=== PATIENT | female | born 1955 | race Caucasian/White ===

== ENCOUNTER 2020-05-21 09:26 | Outpatient (CLI) | payer MEDICARE, BC, SELFPAY ==
[2020-05-21 10:05] LABS: Hematocrit 45.9 % (37.0-47.0); Hemoglobin 15.2 g/dL (12.0-15.0); Mean Corpuscular HGB Conc 33.1 g/dl (32-36); Mean Corpuscular Hemoglobin 32.8 pg (26-34); Mean Corpuscular Volume 98.9 fl (80-100); Mean Platelet Volume 11.2 fl (7.4-10.4); Platelet Count Result 248 k/mm3 (150-375); Red Blood Count 4.64 M/mm3 (4.2-5.4); Red Cell Distribution Width 12.7 % (11.5-14.5); White Blood Count 8.1 K/mm3 (4.5-10.0)
[2020-05-21 11:40] LABS: Add Urine Microscopic? YES; Appearance Urine Clear (Clear); Bilirubin Urine Negative (Negative); Blood Urine 1+ (Negative); Color Urine Straw (Yellow); Glucose Urine UA Negative (Negative); Ketones Urine Negative (Negative); Leukocyte Esterase Ur Negative LEU/UL (Negative); Mucus Urine Rare /lpf; Nitrate Urine Negative (Negative); Protein Urine Negative (Negative); RBC Urine 0-2 /hpf (0-2); Specific Grav Ur 1.011 (1.001-1.035); Squamous Epithelial Cell Urine Rare /hpf (Few); Urobilinogen Urine Negative mg/dL (<2.0); WBC Urine 0-3 /hpf
[2020-05-21 11:53] LABS: Alanine Aminotransferase 15 U/L (4-35); Albumin Level 4.7 g/dL (3.5-5.1); Alkaline Phosphatase 111 U/L (38-126); Aspartate Amino Transferase 27 U/L (14-36); Bilirubin,Total 0.4 mg/dL (0.2-1.3); Blood Urea Nitrogen 14 mg/dL (7-17); CRP < 0.5 mg/dL (<1.0); Calcium 9.9 mg/dL (8.4-10.2); Carbon Dioxide 24 mmol/L (22-30); Chloride 104 mmol/L (98-107); Estimated Glomerular Filt Rate > 60; Glucose 99 mg/dL (65-105); Potassium 4.7 mmol/L (3.4-5.0); Sodium 138 mmol/L (137-145)
[2020-05-21 11:57] LABS: Erythrocyte Sedimentation Rate 15 mm/hr (0-20)
[2020-05-21 12:23] LABS: Cholesterol 234 mg/dL (0-200); HDL Direct 61 mg/dL; Triglycerides 245 mg/dL (<150)
[2020-05-21 12:33] LABS: LDL Cholesterol Direct 131 mg/dL
[2020-05-21 12:38] LABS: Complement C3 130 mg/dL (88-165)
[2020-05-21 12:45] LABS: Vitamin D 25 Hydroxy 28.4 ng/mL
[2020-05-24 04:33] LABS: Hexagonal Phase Confirm Negative (Negative); Lupus dRVVT 1:1 Mix Interpreta Not Indicated; Lupus dRVVT Screen 38 sec (<=45); PTT-LA Screen 41 sec (<=40)
[2020-05-25 09:42] LABS: SS-A <1.0; SS-B <1.0
[2020-07-02 13:59] LABS: SM Antibody <1.0
[2020-07-02 14:03] LABS: SM/RNP Antibody <1.0
== END 2020-05-21 09:27 | disposition home or self-care (01) ==
PROVIDERS: PCP Family Medicine; Visit Provider Internal Medicine
DX: M35.9 Systemic involvement of connective tissue, unspecified (principal); M19.90 Unspecified osteoarthritis, unspecified site; M81.0 Age-related osteoporosis without current pathological fracture; Z79.899 Other long term (current) drug therapy
CPT/HCPCS: 36415; 80053; 80061; 81001; 82306; 85027; 85598; 85613; 85652; 85730; 86140; 86160; 86225; 86235

== ENCOUNTER 2020-12-18 09:40 | Outpatient (CLI) | payer MEDICARE, BC, SELFPAY ==
[2020-12-18 10:07] LABS: Hematocrit 44.7 % (37.0-47.0); Mean Corpuscular HGB Conc 33.6 g/dl (32-36); Mean Corpuscular Hemoglobin 32.5 pg (26-34); Mean Corpuscular Volume 96.8 fl (80-100); Mean Platelet Volume 10.7 fl (7.4-10.4); Platelet Count Result 253 k/mm3 (150-375); Red Blood Count 4.62 M/mm3 (4.2-5.4); Red Cell Distribution Width 12.8 % (11.5-14.5); White Blood Count 7.9 K/mm3 (4.5-10.0)
[2020-12-18 11:05] LABS: Erythrocyte Sedimentation Rate 15 mm/hr (0-20)
[2020-12-18 12:53] LABS: Alanine Aminotransferase 18 U/L (4-35); Albumin Level 4.4 g/dL (3.5-5.1); Alkaline Phosphatase 104 U/L (38-126); Anion Gap 6 mmol/L (8-16); Aspartate Amino Transferase 25 U/L (14-36); Bilirubin,Total 0.5 mg/dL (0.2-1.3); Blood Urea Nitrogen 18 mg/dL (7-17); CRP < 0.5 mg/dL (<1.0); Calcium 9.6 mg/dL (8.4-10.2); Carbon Dioxide 27 mmol/L (22-30); Chloride 107 mmol/L (98-107); Estimated Glomerular Filt Rate 55; Glucose 101 mg/dL (65-105); Potassium 4.6 mmol/L (3.4-5.0); Sodium 140 mmol/L (137-145)
[2020-12-18 13:01] LABS: Complement C3 124 mg/dL (88-165)
[2020-12-21 02:35] LABS: Lupus dRVVT 1:1 Mix Interpreta Not Indicated; Lupus dRVVT Screen 36 sec (<=45); PTT-LA Screen 34 sec (<=40)
[2020-12-21 12:17] LABS: SS-A <1.0; SS-B <1.0
[2020-12-22 11:43] LABS: SM Antibody <1.0; SM/RNP Antibody <1.0
== END 2020-12-18 09:41 | disposition home or self-care (01) ==
LOC: ANHLAB 09:43
PROVIDERS: PCP Family Medicine; Visit Provider Internal Medicine
DX: M35.9 Systemic involvement of connective tissue, unspecified (principal); M19.90 Unspecified osteoarthritis, unspecified site; M32.9 Systemic lupus erythematosus, unspecified
CPT/HCPCS: 36415; 80053; 85027; 85613; 85652; 85730; 86140; 86160; 86225; 86235

== ENCOUNTER 2021-05-29 08:53 | Outpatient (CLI) | payer MEDICARE, BC, SELFPAY ==
[2021-05-29 09:15] LABS: Hematocrit 45.7 % (37.0-47.0); Mean Corpuscular HGB Conc 32.8 g/dl (32-36); Mean Corpuscular Hemoglobin 32.5 pg (26-34); Mean Corpuscular Volume 98.9 fl (80-100); Mean Platelet Volume 10.6 fl (7.4-10.4); Platelet Count Result 250 k/mm3 (150-375); Red Blood Count 4.62 M/mm3 (4.2-5.4); Red Cell Distribution Width 12.8 % (11.5-14.5); White Blood Count 8.8 K/mm3 (4.5-10.0)
[2021-05-29 10:29] LABS: Add Urine Microscopic? NO
[2021-05-29 10:30] LABS: Appearance Urine Clear (Clear); Blood Urine Negative (Negative); Color Urine Yellow (Yellow); Glucose Urine UA Negative (Negative); Ketones Urine Negative (Negative); Protein Urine Negative (Negative)
[2021-05-29 10:31] LABS: Bilirubin Urine Negative (Negative); Leukocyte Esterase Ur Negative LEU/UL (Negative); Nitrate Urine Negative (Negative); Urobilinogen Urine 0.2 mg/dL (<2.0)
[2021-05-29 10:40] LABS: Erythrocyte Sedimentation Rate 15 mm/hr (0-20)
[2021-05-29 12:21] LABS: Alanine Aminotransferase 15 U/L (4-35); Albumin Level 4.7 g/dL (3.5-5.1); Alkaline Phosphatase 91 U/L (38-126); Anion Gap 13 mmol/L (8-16); Aspartate Amino Transferase 23 U/L (14-36); Bilirubin,Total 0.6 mg/dL (0.2-1.3); Blood Urea Nitrogen 16 mg/dL (7-17); CRP < 0.5 mg/dL (<1.0); Calcium 10.2 mg/dL (8.4-10.2); Carbon Dioxide 24 mmol/L (22-30); Chloride 101 mmol/L (98-107); Estimated Glomerular Filt Rate > 60; Glucose 94 mg/dL (65-105); Potassium 4.3 mmol/L (3.4-5.0); Sodium 138 mmol/L (137-145)
== END 2021-05-29 08:54 | disposition home or self-care (01) ==
LOC: ANHLAB 08:59
PROVIDERS: PCP Family Medicine; Visit Provider Internal Medicine
DX: M35.9 Systemic involvement of connective tissue, unspecified (principal); M32.9 Systemic lupus erythematosus, unspecified; M19.90 Unspecified osteoarthritis, unspecified site
CPT/HCPCS: 36415; 80053; 81003; 85027; 85652; 86140

== ENCOUNTER 2021-12-16 09:47 | Outpatient (CLI) | payer MEDICARE, BC, SELFPAY ==
[2021-12-16 10:07] LABS: Hematocrit 47.1 % (37.0-47.0); Hemoglobin 14.8 g/dL (12.0-15.0); Mean Corpuscular HGB Conc 31.4 g/dl (32-36); Mean Corpuscular Volume 101.7 fl (80-100); Mean Platelet Volume 10.7 fl (7.4-10.4); Platelet Count Result 249 k/mm3 (150-375); Red Blood Count 4.63 M/mm3 (4.2-5.4); Red Cell Distribution Width 12.3 % (11.5-14.5); White Blood Count 8.5 K/mm3 (4.5-10.0)
[2021-12-16 10:39] LABS: Alanine Aminotransferase 16 U/L (4-35); Albumin Level 4.5 g/dL (3.5-5.1); Alkaline Phosphatase 84 U/L (38-126); Anion Gap 5 mmol/L (8-16); Aspartate Amino Transferase 26 U/L (14-36); Bilirubin,Total 0.6 mg/dL (0.2-1.3); Blood Urea Nitrogen 13 mg/dL (7-17); CRP < 0.5 mg/dL (<1.0); Calcium 9.7 mg/dL (8.4-10.2); Carbon Dioxide 27 mmol/L (22-30); Chloride 105 mmol/L (98-107); Estimated Glomerular Filt Rate 55; Glucose 92 mg/dL (65-110); Potassium 4.4 mmol/L (3.4-5.0); Sodium 137 mmol/L (137-145)
[2021-12-16 10:44] LABS: Add Urine Microscopic? NO; Appearance Urine Clear (Clear); Bilirubin Urine Negative (Negative); Blood Urine Negative (Negative); Color Urine Yellow (Yellow); Glucose Urine UA Negative (Negative); Ketones Urine Negative (Negative); Leukocyte Esterase Ur Negative LEU/UL (Negative); Nitrate Urine Negative (Negative); Protein Urine Negative (Negative); Specific Grav Ur 1.014 (1.001-1.035); Urobilinogen Urine Negative mg/dL (<2.0)
[2021-12-16 11:02] LABS: Erythrocyte Sedimentation Rate 11 mm/hr (0-20)
== END 2021-12-16 09:48 | disposition home or self-care (01) ==
LOC: ANHLAB 09:49
PROVIDERS: Internal Medicine; PCP Family Medicine; Visit Provider Internal Medicine Hematology & Oncology
DX: M32.9 Systemic lupus erythematosus, unspecified (principal); M35.9 Systemic involvement of connective tissue, unspecified; M19.90 Unspecified osteoarthritis, unspecified site
CPT/HCPCS: 36415; 80053; 81003; 85027; 85652; 86140

== ENCOUNTER 2022-04-21 08:52 | Outpatient (CLI) | payer MEDICARE, BC, SELFPAY ==
[2022-04-21 09:25] LABS: Hematocrit 44.1 % (37.0-47.0); Hemoglobin 14.2 g/dL (12.0-15.0); Mean Corpuscular HGB Conc 32.2 g/dl (32-36); Mean Corpuscular Hemoglobin 32.9 pg (26-34); Mean Corpuscular Volume 102.1 fl (80-100); Mean Platelet Volume 10.8 fl (7.4-10.4); Platelet Count Result 241 k/mm3 (150-375); Red Blood Count 4.32 M/mm3 (4.2-5.4); Red Cell Distribution Width 12.9 % (11.5-14.5); White Blood Count 7.3 K/mm3 (4.5-10.0)
[2022-04-21 10:10] LABS: Alanine Aminotransferase 17 U/L (6-35); Albumin Level 4.6 g/dL (3.5-5.1); Alkaline Phosphatase 83 U/L (38-126); Anion Gap 8 mmol/L (8-16); Aspartate Amino Transferase 25 U/L (14-36); Bilirubin,Total 0.5 mg/dL (0.2-1.3); Blood Urea Nitrogen 12 mg/dL (7-17); CRP < 0.5 mg/dL (<1.0); Carbon Dioxide 24 mmol/L (22-30); Chloride 103 mmol/L (98-107); Estimated Glomerular Filt Rate > 60; Glucose 92 mg/dL (65-110); Potassium 4.6 mmol/L (3.4-5.0); Sodium 135 mmol/L (137-145)
[2022-04-21 10:14] LABS: Appearance Urine Slightly Cloudy (Clear); Bilirubin Urine Negative (Negative); Blood Urine Negative (Negative); Color Urine Yellow (Yellow); Glucose Urine UA Negative (Negative); Ketones Urine Negative (Negative); Leukocyte Esterase Ur Trace LEU/UL (Negative); Nitrate Urine Negative (Negative); Protein Urine Negative (Negative); Specific Grav Ur >= 1.030 (1.001-1.035); Urobilinogen Urine 0.2 mg/dL (<2.0)
[2022-04-21 10:18] LABS: Mucus Urine Rare /lpf; Squamous Epithelial Cell Urine Many /hpf (Few)
[2022-04-21 10:19] LABS: Add Urine Microscopic? YES
[2022-04-21 10:47] LABS: Vitamin D 25 Hydroxy 66.7 ng/mL
[2022-04-21 10:48] LABS: Erythrocyte Sedimentation Rate 10 mm/hr (0-20)
== END 2022-04-21 08:53 | disposition home or self-care (01) ==
LOC: ANHLAB 08:55
PROVIDERS: PCP Family Medicine; Visit Provider Internal Medicine
DX: M32.9 Systemic lupus erythematosus, unspecified (principal); M19.90 Unspecified osteoarthritis, unspecified site; E55.9 Vitamin D deficiency, unspecified
CPT/HCPCS: 36415; 80053; 81001; 82306; 85027; 85652; 86140

== ENCOUNTER 2022-07-30 10:43 | Outpatient (CLI) | payer MEDICARE, BC, SELFPAY ==
[2022-07-30 11:02] LABS: Hematocrit 43.5 % (37.0-47.0); Hemoglobin 14.2 g/dL (12.0-15.0); Mean Corpuscular HGB Conc 32.6 g/dl (32-36); Mean Corpuscular Hemoglobin 32.6 pg (26-34); Mean Platelet Volume 11.6 fl (7.4-10.4); Platelet Count Result 157 k/mm3 (150-375); Red Blood Count 4.35 M/mm3 (4.2-5.4); Red Cell Distribution Width 12.7 % (11.5-14.5); White Blood Count 7.1 K/mm3 (4.5-10.0)
[2022-07-30 13:38] LABS: Appearance Urine Clear (Clear); Bilirubin Urine Negative (Negative); Color Urine Yellow (Yellow); Glucose Urine UA Negative (Negative); Ketones Urine Negative (Negative); Leukocyte Esterase Ur Negative LEU/UL (Negative); Nitrate Urine Negative (Negative); Protein Urine Negative (Negative); Specific Grav Ur 1.015 (1.001-1.035); Urobilinogen Urine 0.2 mg/dL (<2.0); pH Urine 5.5 (5.0-9.0)
[2022-07-30 13:54] LABS: Bacteria Urine Trace /hpf; Mucus Urine Rare /lpf; Squamous Epithelial Cell Urine Occasional /hpf (Few); WBC Urine 0-3 /hpf
[2022-07-30 14:04] LABS: Add Urine Microscopic? YES; Blood Urine Trace-Intact (Negative)
[2022-07-30 15:07] LABS: Erythrocyte Sedimentation Rate 14 mm/hr (0-20)
== END 2022-07-30 10:44 | disposition home or self-care (01) ==
LOC: ANHLAB 10:45
PROVIDERS: PCP Family Medicine; Visit Provider Internal Medicine
DX: M32.9 Systemic lupus erythematosus, unspecified (principal); M19.90 Unspecified osteoarthritis, unspecified site; Z51.81 Encounter for therapeutic drug level monitoring; Z79.899 Other long term (current) drug therapy
CPT/HCPCS: 36415; 81001; 85027; 85652

== ENCOUNTER 2022-11-26 09:18 | Outpatient (CLI) | payer MEDICARE, BC, SELFPAY ==
[2022-11-26 09:55] LABS: Basophils Percent Auto 0.2 % (0.2-1.2); Eosinophils Absolute Auto 0.1 K/mm3 (0-0.3); Eosinophils Percent Auto 1.5 % (0-4.4); Hematocrit 45.5 % (37.0-47.0); Immature Granulocyte Absolute 0.02 K/mm3 (0.00-0.031); Immature Granulocyte Percent A 0.2 % (0-0.5); Lymphocytes Percent Auto 36.4 % (18.3-44.2); Mean Corpuscular Hemoglobin 32.7 pg (26-34); Mean Corpuscular Volume 99.1 fl (80-100); Mean Platelet Volume 10.9 fl (7.4-10.4); Monocytes Absolute Auto 0.7 K/mm3 (0.1-0.6); Monocytes Percent Auto 8.4 % (2.6-8.5); Neutrophils Absolute Auto 4.4 K/mm3 (1.3-6.7); Neutrophils Percent Auto 53.3 % (45.5-73.1); Platelet Count Result 266 k/mm3 (150-375); Red Blood Count 4.59 M/mm3 (4.2-5.4); Red Cell Distribution Width 12.5 % (11.5-14.5); White Blood Count 8.2 K/mm3 (4.5-10.0)
[2022-11-26 10:29] LABS: Add Urine Microscopic? YES; Appearance Urine Clear (Clear); Bilirubin Urine Negative (Negative); Blood Urine Trace-intact (Negative); Color Urine Yellow (Yellow); Glucose Urine UA Negative (Negative); Ketones Urine Negative (Negative); Leukocyte Esterase Ur Negative LEU/UL (Negative); Nitrate Urine Negative (Negative); Protein Urine Negative (Negative); Specific Grav Ur 1.015 (1.001-1.035); Urobilinogen Urine 0.2 mg/dL (<2.0)
[2022-11-26 10:31] LABS: Bacteria Urine Trace /hpf; Mucus Urine Rare /lpf; RBC Urine 0-2 /hpf (0-2); Squamous Epithelial Cell Urine Few /hpf (Few); WBC Urine 0-3 /hpf
[2022-11-26 10:39] LABS: CRP < 0.5 mg/dL (<1.0)
[2022-11-26 10:48] LABS: Erythrocyte Sedimentation Rate 13 mm/hr (0-20)
[2022-11-26 10:59] LABS: Alanine Aminotransferase 20 U/L (6-35); Albumin Level 4.7 g/dL (3.5-5.1); Alkaline Phosphatase 88 U/L (38-126); Anion Gap 6 mmol/L (8-16); Aspartate Amino Transferase 26 U/L (14-36); Bilirubin,Total 0.6 mg/dL (0.2-1.3); Blood Urea Nitrogen 14 mg/dL (7-17); Calcium 9.4 mg/dL (8.4-10.2); Carbon Dioxide 27 mmol/L (22-30); Chloride 102 mmol/L (98-107); Cholesterol 286 mg/dL (0-200); Estimated Glomerular Filt Rate 55; Glucose 100 mg/dL (65-110); HDL Direct 57 mg/dL; Potassium 4.4 mmol/L (3.4-5.0); Sodium 135 mmol/L (137-145); Triglycerides 214 mg/dL (<150)
[2022-11-26 11:10] LABS: LDL Cholesterol Direct 139 mg/dL
== END 2022-11-26 09:19 | disposition home or self-care (01) ==
LOC: ANHLAB 09:20
PROVIDERS: Internal Medicine; Physician Assistant Medical; PCP Family Medicine; Visit Provider Internal Medicine Hematology & Oncology
DX: M32.9 Systemic lupus erythematosus, unspecified (principal); M19.90 Unspecified osteoarthritis, unspecified site; E78.2 Mixed hyperlipidemia; I10 Essential (primary) hypertension
CPT/HCPCS: 36415; 80053; 80061; 81001; 85025; 85652; 86140

== ENCOUNTER 2023-07-13 11:14 | Outpatient (CLI) | payer MEDICARE, BC, SELFPAY ==
[2023-07-13 11:35] LABS: Hematocrit 43.6 % (37.0-47.0); Hemoglobin 14.7 g/dL (12.0-15.0); Mean Corpuscular HGB Conc 33.7 g/dl (32-36); Mean Corpuscular Hemoglobin 32.7 pg (26-34); Mean Corpuscular Volume 97.1 fl (80-100); Mean Platelet Volume 10.8 fl (7.4-10.4); Platelet Count Result 274 k/mm3 (150-375); Red Blood Count 4.49 M/mm3 (4.2-5.4); Red Cell Distribution Width 12.5 % (11.5-14.5); White Blood Count 7.1 K/mm3 (4.5-10.0)
[2023-07-13 16:40] LABS: Appearance Urine Clear (Clear); Bilirubin Urine Negative (Negative); Blood Urine Negative (Negative); Color Urine Yellow (Yellow); Glucose Urine UA Negative (Negative); Ketones Urine Negative (Negative); Leukocyte Esterase Ur Negative LEU/UL (Negative); Nitrate Urine Negative (Negative); Protein Urine Negative (Negative); Specific Grav Ur 1.011 (1.001-1.035); Urobilinogen Urine 0.2 mg/dL (<2.0)
[2023-07-13 16:42] LABS: Add Urine Microscopic? NO
[2023-07-13 16:53] LABS: Alanine Aminotransferase 22 U/L (6-35); Albumin Level 4.3 g/dL (3.5-5.1); Alkaline Phosphatase 100 U/L (38-126); Anion Gap 5 mmol/L (8-16); Aspartate Amino Transferase 32 U/L (14-36); Bilirubin,Total 0.5 mg/dL (0.2-1.3); Blood Urea Nitrogen 14 mg/dL (7-17); CRP < 0.5 mg/dL (<1.0); Calcium 9.5 mg/dL (8.4-10.2); Carbon Dioxide 30 mmol/L (22-30); Chloride 101 mmol/L (98-107); Estimated Glomerular Filt Rate 55; Glucose 86 mg/dL (65-110); Potassium 4.9 mmol/L (3.4-5.0); Sodium 136 mmol/L (137-145)
[2023-07-13 17:26] LABS: Erythrocyte Sedimentation Rate 12 mm/hr (0-20)
== END 2023-07-13 11:15 | disposition home or self-care (01) ==
PROVIDERS: Internal Medicine; PCP Family Medicine; Visit Provider Internal Medicine Hematology & Oncology
DX: M19.90 Unspecified osteoarthritis, unspecified site (principal); M32.9 Systemic lupus erythematosus, unspecified
CPT/HCPCS: 36415; 80053; 81003; 85027; 85652; 86140

== ENCOUNTER 2023-11-20 11:20 | Outpatient (CLI) | payer MEDICARE, BC, SELFPAY ==
[2023-11-20 11:42] LABS: Hematocrit 44.2 % (37.0-47.0); Hemoglobin 14.6 g/dL (12.0-15.0); Mean Corpuscular Hemoglobin 32.5 pg (26-34); Mean Corpuscular Volume 98.4 fl (80-100); Mean Platelet Volume 10.4 fl (7.4-10.4); Platelet Count Result 283 k/mm3 (150-375); Red Blood Count 4.49 M/mm3 (4.2-5.4); Red Cell Distribution Width 12.4 % (11.5-14.5); White Blood Count 9.5 K/mm3 (4.5-10.0)
[2023-11-20 16:25] LABS: Appearance Urine Clear (Clear); Bilirubin Urine Negative (Negative); Blood Urine Negative (Negative); Color Urine Yellow (Yellow); Glucose Urine UA Negative (Negative); Ketones Urine Negative (Negative); Leukocyte Esterase Ur Negative LEU/UL (Negative); Nitrate Urine Negative (Negative); Protein Urine Negative (Negative); Specific Grav Ur 1.007 (1.001-1.035); Urobilinogen Urine 0.2 mg/dL (<2.0); pH Urine 6.5 (5.0-9.0)
[2023-11-20 16:35] LABS: Add Urine Microscopic? NO
[2023-11-20 16:54] LABS: Erythrocyte Sedimentation Rate 13 mm/hr (0-20)
[2023-11-20 17:05] LABS: Alanine Aminotransferase 38 U/L (6-35); Albumin Level 4.3 g/dL (3.5-5.1); Alkaline Phosphatase 109 U/L (38-126); Anion Gap 10 mmol/L (8-16); Aspartate Amino Transferase 44 U/L (14-36); Bilirubin,Total 0.6 mg/dL (0.2-1.3); Blood Urea Nitrogen 15 mg/dL (7-17); CRP < 0.5 mg/dL (<1.0); Calcium 9.6 mg/dL (8.4-10.2); Carbon Dioxide 25 mmol/L (22-30); Chloride 104 mmol/L (98-107); Estimated Glomerular Filt Rate 55; Glucose 86 mg/dL (65-110); Potassium 4.7 mmol/L (3.4-5.0); Sodium 139 mmol/L (137-145)
== END 2023-11-20 11:21 | disposition home or self-care (01) ==
LOC: ANHLAB 11:24
PROVIDERS: Internal Medicine; PCP Family Medicine; Visit Provider Internal Medicine Hematology & Oncology
DX: M32.9 Systemic lupus erythematosus, unspecified (principal); M19.90 Unspecified osteoarthritis, unspecified site
CPT/HCPCS: 36415; 80053; 81003; 85027; 85652; 86140